=== PATIENT | male | born 1965 | race Caucasian/White ===

== ENCOUNTER 2017-12-23 09:03 | Day surgery (SDC) | payer OTHER ==
[2017-12-23] MEDS ORDERED: LACTATED RINGERS 1,000 ML IV.SOLN IV ONE (09:04)
[2017-12-23] MEDS ORDERED: PROPOFOL 500 MG/50 ML VIAL IV ONE (09:04)
[2017-12-23] MEDS ORDERED: SALINE FLUSH 10 ML DISP.SYRIN IVF ONE (09:04)
[2017-12-23] MEDS ORDERED: ONDANSETRON HCL/PF 4 MG/ 2ML VIAL ONE (09:04)
--- NOTE | 2017-12-26 10:58 | GI Report ---
REFERRING PHYSICIAN: Dr. Adwoa Jones CONSTRUCTION MANAGEMENT ASSISTANT: Connor Arzola MD PROCEDURE MEDICATION: Propofol as per anesthesia. INDICATIONS: Patient is a 51-year-old. He is referred for a screening colonoscopy. There is a family history of polyps of the colon in his family. He is in good health otherwise. PROCEDURE PERFORMED: Colonoscopy and polypectomy. PROCEDURE: On rectal exam, he does have some hemorrhoids. Prostate is maybe 1+ and large but soft. An Olympus video colonoscope was advanced to the rectum. In the sigmoid at about 16 to 17 cm, the patient has what appears to be about 1.5 cm of a sessile-type polyp that is kind of villous appearing. At the end of the procedure, this was removed piecemeal. We removed about 90% of the polyp with the first cut snare cautery and then there were 2 small residual areas that were removed with electrocautery down what appeared to be the base. Then 2 mL of Saray Ink were tattooed at the site also. Again, it appears to be at about 16 to 17 cm on withdrawal. The colonoscope was advanced all the way to the cecum. The appendiceal orifice and ileocecal valve were normal. Ascending colon and transverse colon with no obvious intraluminal lesions noted. The descending colon had a few small diverticula. No obvious intraluminal lesions noted until you get to this huge sessile polyp in the sigmoid at about 16, 17, or 18 cm in that range, which was removed as described above in 3 pieces with electrocautery and tattoo. Patient tolerated the procedure well. FINDINGS: One large sessile polyp in the sigmoid removed in 3 pieces. The site was tattooed. RECOMMENDATIONS: 1. A high-fiber diet. 2. Pending the pathology of this polyp, may need to be looked at again between 1 and 3 years. 3. Follow up with Dr. Jones. cc: Dr. Adwoa RAND
== END 2017-12-23 09:05 ==
LOC: OPSURG 09:03
PROVIDERS: ATTEND Internal Medicine Gastroenterology
DX: Z12.11 Encounter for screening for malignant neoplasm of colon (principal); D37.4 Neoplasm of uncertain behavior of colon
CPT/HCPCS: J2405; J2704; J7120; 45381; 45385; S1016

== ENCOUNTER 2018-07-28 11:54 | Day surgery (SDC) | payer OTHER ==
[~2018-07-28 11:54] MED LIST: LACTATED RINGERS 1,000 ML IV.SOLN IV ONE; LIDOCAINE HCL 2% PF 100MG/5ML VIAL IJ ONE; PROPOFOL 500 MG/50 ML VIAL IV ONE
--- NOTE | 2018-07-29 15:34 | GI Report ---
REFERRING PHYSICIAN: Dr. Adwoa Jones TEST DESK SUPERVISOR: Connor Arzola MD PROCEDURE MEDICATION: Propofol as per anesthesia. INDICATIONS: This is a 52-year-old man who has a strong family history of polyps. Last year in 2018, he had a colonoscopy and had a large, at least a 1.5 cm size, sessile- type polyp, villous appearing in the sigmoid at 16 to 17 cm. We removed it in 3 pieces and put a tattoo there. 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 Because of that, he is referred to re-look at the area and see if there is any residual from the piecemeal polypectomy. He denies any change in stool. He actually states he is eating a little more fiber and his stools are a little more regular than before. PROCEDURE PERFORMED: Colonoscopy and polypectomy. PROCEDURE: An Quu video colonoscope was advanced to the rectum. In the sigmoid at about 16 to 17 cm, you do see a tattoo. I see no residual at the area of the tattoo. About 1 cm above that, there is a 3 to 4 mm little flat polyp we removed with a combination of a cold snare and then biopsied the base. The colonoscope was advanced all the way to the cecum. The appendiceal orifice and terminal ileum were normal. On slow withdrawal, the cecum, ascending colon, and transverse colon with no obvious intraluminal lesions noted. The descending colon is normal and the sigmoid is normal until you get to that 16 cm where the tattoo was and then a small polyp removed right above there. Retroflexion of the rectum was normal. Patient tolerated the procedure well. FINDINGS: One small polyp removed in the sigmoid at the area of the previous piecemeal polypectomy and tattoo. I see no residual. RECOMMENDATIONS: 1. A high-fiber diet. 2. Consider re-looking at his colon in 3 years pending the pathology of the polyp. cc: Dr. Adwoa RAND
== END 2018-07-28 15:20 ==
LOC: OPSURG 11:54
PROVIDERS: ATTEND Internal Medicine Gastroenterology
DX: K63.5 Polyp of colon (principal); Z86.010 Personal history of colon polyps
CPT/HCPCS: 45385; 88305; J2001; J2704; J7120; S1016